=== PATIENT | male | born 1980 | race African-American/Black ===

== ENCOUNTER → 2016-05-22 | Outpatient (CLI) | payer OTHER ==
--- NOTE | 2016-05-22 18:02 | Diagnostic Imaging Report ---
Indication: Possible foreign body, pre-MRI. Comparison: None. Findings: Two views of the face demonstrate no osseous lesion, fracture or metallic fragment. Impression: No unexpected radiopaque foreign body. Dictated by: Dictated on workstation # [id number]
--- NOTE | 2016-05-23 08:19 | Diagnostic Imaging Report ---
PROCEDURE: MRI right joint upper extremity without contrast. TECHNIQUE: Multiplanar, multisequence MR imaging of the right shoulder was performed without contrast. COMPARISON: Right shoulder radiographs of 04/17/2016. INDICATION: Shoulder pain with limited range of motion. FINDINGS: Rotator cuff: There is a low-grade partial-thickness tear involving the anterior supraspinatus. The tear is predominantly interstitial but may extend to the articular surface more anteriorly. The tear extends over approximately 1 cm in AP dimension. No retracted tendon fibers. Infraspinatus, teres minor and subscapularis remain intact. No rotator cuff muscle atrophy. Glenoid labrum: By non-arthrogram imaging, the glenoid labrum is intact. Long head of biceps: The long head of the biceps is normal in morphology and position. No tear or significant tendinopathy. Bones and cartilage: No fracture or bone contusion. No osteonecrosis of the humeral head. AC joint is normal alignment. No high-grade chondromalacia in the glenohumeral joint. Soft tissues: No glenohumeral joint effusion. No MRI findings to suggest adhesive capsulitis. No subacromial/subdeltoid bursitis. IMPRESSION: 1. Low-grade partial-thickness interstitial tear of the anterior supraspinatus. No rotator cuff atrophy or retracted full-thickness tear. 2. Normal long head of biceps. Dictated by: Dictated on workstation # [id number]
== END ==
LOC: RAD 17:14
PROVIDERS: ATTEND Family Medicine
DX: S46.001A Unspecified injury of muscle(s) and tendon(s) of the rotator cuff of right shoulder, initial encounter (principal); Z77.018 Contact with and (suspected) exposure to other hazardous metals; X58.XXXA Exposure to other specified factors, initial encounter
CPT/HCPCS: 70250; 73221

== ENCOUNTER → 2016-06-27 | Outpatient (CLI) | payer OTHER | LOC: RAD 12:29 | PROVIDERS: ATTEND Family Medicine | DX: S67.21XA Crushing injury of right hand, initial encounter (principal); X58.XXXA Exposure to other specified factors, initial encounter | CPT/HCPCS: 73130 ==